=== PATIENT | female | born 1965 | race Two or more races ===

== ENCOUNTER → 2024-05-24 | Outpatient (CLI) | payer BC, SELFPAY ==
--- NOTE | 2024-05-24 09:44 | XR_ITS ---
Examination: Tibia-Fibula, right , 2 views Technique: Tibia-fibula AP lateral 2 views Date and time of exam: Febrile 6 2024 0955 hours INDICATIONS: Right leg pain beginning 2 weeks ago. FINDINGS: Moderate osteopenia. No fracture. No opaque foreign body IMPRESSION: No opaque foreign body
== END | disposition home or self-care (01) ==
LOC: SDIM 09:32
PROVIDERS: PCP Family Medicine; Referring Provider Obstetrics & Gynecology; Visit Provider Obstetrics & Gynecology
DX: M79.604 Pain in right leg (principal)
CPT/HCPCS: 73590

== ENCOUNTER 2025-01-29 16:53 | Emergency (ER) | payer BC, SELFPAY ==
[2025-01-29 17:11] VITALS: BP 130/83; PULSE 120; RESP 18; TEMP 37.4; O2SAT 95; BMI 29.3
--- NOTE | 2025-01-29 17:13 | XR_ITS ---
EXAMINATION: PA lateral chest 2 views TECHNIQUE: Upright PA lateral chest 2 views Date and time: January 29, 2025, 1723 hours INDICATIONS: Coughing beginning 1 month ago FINDINGS: Normal heart size Lungs are clear. Osseous structures are intact. IMPRESSION: No active disease
--- NOTE | 2025-01-29 17:13 | EDRME_ITS ---
Rapid Medical Screening Exam [facility] Arrival date/time: 01/29/25 16:53 59-year-old female with no known medical history presents to the emergency room with a chief complaint of cough, congestion, intermittent fevers x 1 month I have greeted and performed a focused initial assessment of this patient. A comprehensive ED assessment and evaluation of the patient, analysis of all test results, and completion of the medical decision making process will be conducted by additional ED providers. Chief Complaint: Fever Vital signs: Vital Signs Temperature 99.4 F 01/29/25 17:11 Pulse Rate 120 H 01/29/25 17:11 Respiratory Rate 18 01/29/25 17:11 Blood Pressure 130/83 01/29/25 17:11 Pulse Oximetry (%) 95 01/29/25 17:11 Oxygen Delivery Method Room Air 01/29/25 17:11 Vital signs reviewed by provider: Yes
[2025-01-29 17:54] LABS: Influenza A Ag Negative; Influenza B Ag Negative
--- NOTE | 2025-01-29 21:21 | EDNOTE_ITS ---
Upper Respiratory Inf. RME/HPI General Chief Complaint: Fever Stated Complaint: FEVER, COUGH, BODY ACHES, CHEST PAIN X 1 MO Time Seen by Provider: 01/29/25 21:05 Arrival date/time: 01/29/25 16:53 RME / HPI RME / HPI Narrative: 01/29/25 16:53 59-year-old female with no known medical history presents to the emergency room with a chief complaint of cough, congestion, intermittent fevers x 1 month I have greeted and performed a focused initial assessment of this patient. A comprehensive ED assessment and evaluation of the patient, analysis of all test results, and completion of the medical decision making process will be conducted by additional ED providers. DR. MOLINA MAIN ED EVALUATION: 59 y/o female with Hx of Hypercholesterolemia and Type II DM presents with fever and body aches x 2 weeks and intermittent cough x 1 month. Patient states cough began after completing a 4-day ABX regimen approximately 3 weeks ago. Denies wheezing. Denies history of smoking. Related Data Previous Rx's ?Medication ?Instructions ?Recorded pantoprazole 40 mg tablet,delayed 40 mg PO QDAY #30 ta bs 07/13/23 release (Protonix) albuterol sulfate 90 mcg/actuation 2 inh inhalation Q4 H PRN shortness 01/29/25 breath activated powder inhaler of breath #1 ea prednisone 50 mg tablet 50 mg PO QDAY #5 tabs Allergies Allergy/AdvReac Type Severity Reaction Status Date / Time No Known Allergies Allergy Verified 01/29/25 16:56 Review of Systems Review of Systems Systems Reviewed: All systems reviewed, normal except as documented Past Medical History Past Medical History CARDIAC: Positive Cardiac Disorders and Hypercholesterolemia REPRODUCTIVE: Positive Previous Pregnancies ENDOCRINE: Positive Diabetes Mellitus Type 2 Surgical History SURGICAL: Positive Neurologic Surgery (brain tumor removed) and Section (x3) ED Exam Narrative Physical exam: Generally the patient is alert and in no obvious distress, heart regular rate and rhythm, lungs clear to auscultation equal bilaterally, chest shows no tenderness to palpation, extremities show no edema, neurologic exam [place] Coma Scale is 15 without focal motor deficit Course Quality Measures none Orders Category Date Time Status Bedside COVID-19 Antigen Test NOW Care 01/29/25 17:13 Active XR chest 2V Stat Exams 01/29/25 17:13 Completed Cocci Serology IgM with reflex to IgG [Cocci Serology, Lab 01/29/25 21:18 Ordered Unk History] Stat Influenza A & B Rapid Panel Stat Lab 01/29/25 17:18 Completed Vital Signs Vital signs: Vital Signs Temperature 99.4 F 01/29/25 17:11 Pulse Rate 120 H 01/29/25 17:11 Respiratory Rate 18 01/29/25 17:11 Blood Pressure 130/83 01/29/25 17:11 Pulse Oximetry (%) 95 01/29/25 17:11 Oxygen Delivery Method Room Air 01/29/25 17:11 Upper Respiratory Infection MDM Narrative MDM Narrative:: Scribe Attestation: IYoli, am scribing for and in the presence of Dr. Molina. Provider Notation: Although this document has been carefully reviewed, there may still be some phonetic and other typographical errors. These errors are purely grammatical due to imperfections in the software program and should not be construed in any way to compromise the substance of the patient's medical care during this visit. COVID swab is negative. Flu swabs are negative. Valley fever test was drawn. Patient has had cough and on again off again fever for a month. This could be the remnant of COVID. As stated we will test for valley fever. Will try the patient on prednisone and albuterol to be taken as prescribed. Patient has already taken a course of antibiotic without benefit. Patient does have primary care follow-up. I do not believe this patient to have a pulmonary embolus. Patient does not smoke cigarettes and only past medical history is for type 2 diabetes. Patient data External records reviewed:: [facility] previous records (No prior ED records available for review) Clinical information provided by:: patient Social determinants that could affect healthcare access:: none Patient has the following chronic illnesses:: Hypercholesterolemia, Diabetes Mellitus Type 2 How is presenting disease/condition affected by chronic disease/condition?: exacerbated by Evaluation data The following diagnostics were reviewed and interpreted by me:: lab results and radiology exam(s) Lab and/or radiology exams considered but not ordered:: None Interpretation Summary: RADIOLOGY Chest X-Ray: FINDINGS: Normal heart size Lungs are clear. Osseous structures are intact. IMPRESSION: No active disease Medications / Prescriptions Medications or Prescriptions considered but not ordered:: None Medication administrations:: See above if any Consultations Consultation(s) initiated? (list below): No Diagnosis Upper Respiratory Differential Diagnosis: upper respiratory infection, viral infection, bronchitis, influenza and other (Valley fever) Most likely diagnosis given after review of the tests above:: none Admission Indicated Admission indicated?: not indicated Explain why admission is indicated or not indicated:: Patient does not meet admission criteria Admission Request Was there a request for admission?: No Disposition Plan Disposition Plan: Discharge Discharge Attestation Discharge Attestation: The patient and all family members were given an opportunity to ask questions and understood the discharge instructions. Discharge instructions specifically effects, indications for sooner follow up or return to the emergency department, and the expected course of current diagnosis. Patient condition: Stable Discharge Plan Plan Patient Disposition: HOME (Self Care) Prescriptions/Referrals Prescriptions/Med Rec: New prednisone 50 mg tablet 50 mg PO QDAY Qty: 5 0RF albuterol sulfate 90 mcg/actuation aerosol powdr breath activated 2 inh inhalation Q4H PRN (Reason: shortness of breath) Qty: 1 0RF No Action pantoprazole [Protonix] 40 mg Tablet,Delayed Release (Dr/Ec) 40 mg PO QDAY Qty: 30 0RF Referrals: Lazara Zelaya MD [Primary Care Provider, Family Practice] - In 1 week Problem List Clinical Impression: Dyspnea Patient/Caregiver Discharge Instructions Education Materials: ED Shortness of Breath (Dyspnea) Additional Instructions: Medication as prescribed. Follow-up with your doctor. Return to ER as needed or if condition worsens. Print Language: Cymraes Stand Alone Forms: Alanna Award Info., Patient Portal Info Letter
[2025-01-29 21:45] VITALS: PULSE 70; RESP 18; TEMP 37.3; O2SAT 95
[2025-01-30 12:41] LABS: Cocci Serology, IgM Negative (Negative)
[2025-01-31 12:48] LABS: Cocci Serology, IgG Negative (Negative)
== END 2025-01-29 21:45 | disposition home or self-care (01) ==
PROVIDERS: Nurse Practitioner Family; Emergency Provider Emergency Medicine; PCP Family Medicine
DX: R06.00 Dyspnea, unspecified (principal)
CPT/HCPCS: 36415; 71046; 86331; 86635; 87502; 87811; 99283